=== PATIENT | female | born 1945 | race American Indian/Alaskan Native ===

== ENCOUNTER 2017-04-07 00:10 | Emergency (ER) | payer MEDICARE ==
[2017-04-07 01:42] LABS: Basophils % (Auto) 0.4 % (0.0-1.8); Eosinophils % (Auto) 2.1 % (0.0-4.3); Hematocrit 28.5 % (30.3-42.9); Hemoglobin 9.5 gm/dl (10.1-14.3); Mean Corpuscular HGB Conc 33 % (30-34); Mean Corpuscular Hemoglobin 31 pg (28-32); Mean Corpuscular Volume 92 fl (79-97); Platelet Count 447 K/mm3 (140-440); Red Cell Distribution Width 12.4 % (13.2-15.2); White Blood Count 10.4 K/mm3 (4.5-11.0)
[2017-04-07 01:46] LABS: Alanine Aminotransferase 6 units/L (7-56); Albumin 4.2 g/dL (3.9-5); Albumin/Globulin Ratio 1.5 %; Alkaline Phosphatase 59 units/L (35-129); Anion Gap 20 mmol/L; BUN/Creatinine Ratio 18.75; Blood Urea Nitrogen 15 mg/dL (7-17); Calcium 9.7 mg/dL (8.4-10.2); Carbon Dioxide 25 mmol/L (22-30); Chloride 98.6 mmol/L (98-107); Glucose 126 mg/dL (65-100); Lipase 158 units/L (13-60); Potassium 4.1 mmol/L (3.6-5.0); Sodium 139 mmol/L (137-145)
[2017-04-07 02:11] VITALS: BP 104/61
--- NOTE | 2017-04-07 03:02 | XRay Report ---
FINAL REPORT PROCEDURE: XR ABDOMEN 2V TECHNIQUE: Abdominal series, including supine and upright AP views. HISTORY: constipation COMPARISON: No prior studies are available for comparison. FINDINGS: Bowel gas pattern:Nonobstructive . Masses or calcifications:None . Bony structures:No significant abnormality . Pneumoperitoneum:None . Other:No significant findings . IMPRESSION: No acute abnormality.
== END 2017-04-07 02:07 | disposition left against medical advice (07) ==
LOC: ED 00:10
DX: R10.9 Unspecified abdominal pain (principal); R42 Dizziness and giddiness; K59.00 Constipation, unspecified; I10 Essential (primary) hypertension; Z53.21 Procedure and treatment not carried out due to patient leaving prior to being seen by health care provider
CPT/HCPCS: 36415; 74020; 80053; 83690; 85025